=== PATIENT | male | born 1970 | race Caucasian/White ===

== ENCOUNTER 2025-04-25 20:48 | Inpatient (IN) ==
[2025-04-25] MEDS: IPRATROPIUM/ALBUTEROL 3 ML AMPUL.NEB NEB ONE (21:44)
[2025-04-25] MEDS: 0.9 % SODIUM CHLORIDE 500 ML IV ONE (21:51)
[2025-04-25] MEDS: KETOROLAC 30 MG/ML VIAL IV ONE (21:51)
[2025-04-25] MEDS: ACETAMINOPHEN 1,000 MG/100 ML BAG IV ONE (21:51)
[2025-04-25] MEDS: methylPREDNISolone SOD SUCC 125 MG/2 ML VIAL IV ONE (21:51)
[2025-04-25 22:12] LABS: Basophils # (Auto) 0.03 K/mcL (0.00-0.30); Basophils % (Auto) 0.3 % (0.0-2.0); Eosinophils # (Auto) 0.06 K/mcL (0.00-0.70); Eosinophils % (Auto) 0.6 % (0.0-7.0); Hematocrit 41.7 % (40.1-51.0); Hemoglobin 13.5 g/dL (13.7-17.5); Lymphocytes # (Auto) 0.95 K/mcL (1.50-4.80); Lymphocytes % (Auto) 9.6 % (15.5-49.0); Mean Corpuscular HGB Conc 32.4 g/dL (31.0-36.0); Mean Platelet Volume 12.4 fL (8.8-12.5); Monocytes # (Auto) 1.12 K/mcL (0.10-0.90); Monocytes % (Auto) 11.3 % (1.0-12.0); Neutrophils % (Auto) 77.9 % (38.0-78.0); Platelet Count 224 K/mcL (140-440); RBC 4.85 M/mcL (4.63-6.08); Red Cell Distribution Width 14.2 % (11.5-14.5); WBC 9.9 K/mcL (4.5-11.0)
[2025-04-25] MEDS: cefTRIAXone 2 GM in DEXTROSE 5% IN WATER 50 ML IV ONE (22:18)
[2025-04-25 22:23] LABS: Prothrombin Time 13.9 sec (11.9-14.5)
[2025-04-25 22:26] LABS: proBNP 82.6 pg/mL (<125.0)
[2025-04-25 22:29] LABS: ALT/SGPT 20 U/L (<40); AST/SGOT 21 U/L (<40); Albumin 4.1 gm/dL (3.2-5.2); Albumin/Globulin Ratio 1.5 (1.0-2.3); Alkaline Phosphatase 48 U/L (39-117); Bilirubin,Total 0.3 mg/dL (0.1-1.0); Blood Urea Nitrogen 12 mg/dL (6-20); C-Reactive Protein 1.93 mg/dL (0.03-0.80); Calcium 9.4 mg/dL (8.6-10.4); Carbon Dioxide 24 mmol/L (22-30); Chloride 98 mmol/L (96-108); Globulin 2.8 gm/dL (2.2-3.7); Glomerular Filtration Rate 95; Glucose 132 mg/dL (70-105); Potassium 3.9 mmol/L (3.3-5.1); Sodium 135 mmol/L (133-145)
[2025-04-25] MEDS: AZITHROMYCIN 500 MG in DEXTROSE 5% IN WATER 250 ML IV ONE (22:51)
[2025-04-25 22:56] LABS: Erythrocyte Sedimentation Rate 11 mm/hr (0-20)
[2025-04-26 01:01] LABS: Appearance,Urine Clear (Clear); Bilirubin,Urine Negative (Negative); Color,Urine Yellow; Glucose,Urine (UA) >=1000 mg/dL (Negative); Ketones,Urine 15 mg/dL (Negative); Leukocyte Esterase,Urine Negative /uL (Negative); Mucus,Urine Few /hpf; Nitrate,Urine Negative (Negative); Protein,Urine Negative (Negative); Specific Gravity,Urine <= 1.005 (1.000-1.035); Urine Blood Negative ery/mcL (Negative); Urine RBC 0 /hpf (0-3); Urine Squamous Epithelial Cell 0 /hpf (0-4); Urine WBC 0 /hpf (0-4); Urobilinogen,Urine Normal
[2025-04-26] MEDS: IPRATROPIUM/ALBUTEROL 3 ML AMPUL.NEB NEB ONE (01:04)
[2025-04-26] MEDS ORDERED: ONDANSETRON 4 MG/2 ML VIAL IV PRN (01:17)
[2025-04-26] MEDS: DIVALPROEX SODIUM 250 MG TABLET PO ONE (01:53)
[2025-04-26] MEDS: IPRATROPIUM/ALBUTEROL 3 ML AMPUL.NEB NEB SCH (02:55)
[2025-04-26] MEDS: LACTATED RINGERS 1,000 ML IV SCH (03:28)
[2025-04-26] MEDS: 0.9 % SODIUM CHLORIDE 1,000 ML IV SCH (03:28)
[2025-04-26] MEDS: traZODone HCL 100 MG TABLET PO ONE (04:55)
[2025-04-26 05:53] LABS: Basophils # (Auto) 0.01 K/mcL (0.00-0.30); Basophils % (Auto) 0.1 % (0.0-2.0); Eosinophils # (Auto) 0 K/mcL (0.00-0.70); Eosinophils % (Auto) 0 % (0.0-7.0); Hematocrit 41.2 % (40.1-51.0); Hemoglobin 13.2 g/dL (13.7-17.5); Lymphocytes # (Auto) 0.58 K/mcL (1.50-4.80); Mean Cell Volume 86.4 fL (80.0-100.0); Monocytes # (Auto) 0.35 K/mcL (0.10-0.90); Monocytes % (Auto) 3.6 % (1.0-12.0); Neutrophils % (Auto) 89.9 % (38.0-78.0); Platelet Count 207 K/mcL (140-440); RBC 4.77 M/mcL (4.63-6.08); Red Cell Distribution Width 14.1 % (11.5-14.5); WBC 9.7 K/mcL (4.5-11.0)
[2025-04-26 06:09] LABS: ALT/SGPT 16 U/L (<40); AST/SGOT 17 U/L (<40); Albumin/Globulin Ratio 1.4 (1.0-2.3); Alkaline Phosphatase 47 U/L (39-117); Bilirubin,Direct < 0.2 mg/dL (0-0.3); Bilirubin,Total < 0.2 mg/dL (0.1-1.0); Blood Urea Nitrogen 11 mg/dL (6-20); Carbon Dioxide 21 mmol/L (22-30); Chloride 103 mmol/L (96-108); Globulin 2.8 gm/dL (2.2-3.7); Glomerular Filtration Rate 99; Glucose 194 mg/dL (70-105); Lactate Dehydrogenase 271 U/L (135-225); Phosphorous 3.8 mg/dL (2.5-4.5); Potassium 3.7 mmol/L (3.3-5.1); Sodium 140 mmol/L (133-145); Triglycerides 52 mg/dL (<150); Uric Acid 4.6 mg/dL (2.5-8.0)
[2025-04-26] MEDS ORDERED: cefTRIAXone 1 GM VIAL IV SCH ×2 (07:00)
[2025-04-26] MEDS ORDERED: risperiDONE 0.25 MG TABLET PO PRN (08:01)
[2025-04-26] MEDS: Tiotropium Bromide [Spiriva Respimat] 2.5 mcg/act INH SCH (08:34)
[2025-04-26] MEDS: Budesonide-Formoterol [Symbicort] 160-4.5 mcg/act INH SCH (08:34)
[2025-04-26] MEDS: ASPIRIN 81 MG TAB.CHEW PO SCH (08:36)
[2025-04-26] MEDS: methylPREDNISolone SOD SUCC 125 MG/2 ML VIAL IV SCH (08:36)
[2025-04-26] MEDS: risperiDONE 1 MG TABLET PO SCH (08:37)
[2025-04-26] MEDS: cefTRIAXone 2 GM in DEXTROSE 5% IN WATER 50 ML IV SCH (08:37)
[2025-04-26] MEDS: DOXYCYCLINE 100 MG in DEXTROSE 5% IN WATER 100 ML IV SCH (08:37)
[2025-04-26] MEDS: GABAPENTIN 300 MG CAPSULE PO SCH (08:37)
[2025-04-26] MEDS: TAMSULOSIN 0.4 MG CAPSULE PO SCH (08:37)
[2025-04-26] MEDS: DIVALPROEX SODIUM 250 MG TABLET PO SCH (08:37)
[2025-04-26] MEDS ORDERED: DEXTROSE 50% 50 ML VIAL IV PRN (08:41)
[2025-04-26] MEDS ORDERED: DEXTROSE 31 GM ORAL.SUSP PO PRN (08:41)
[2025-04-26] MEDS: ENOXAPARIN 40 MG/0.4 ML SYRINGE SQ SCH (08:54)
[2025-04-26] MEDS ORDERED: methylPREDNISolone SOD SUCC 125 MG/2 ML VIAL IV SCH (09:00)
[2025-04-26] MEDS: INSULIN LISPRO 1 UNIT/0.01 ML UNIT SQ SCH (11:24)
[2025-04-26] MEDS: HALOPERIDOL 5 MG TABLET PO PRN (11:45)
[2025-04-26] MEDS: BENZTROPINE 1 MG TABLET PO SCH (16:26)
[2025-04-26] MEDS: ATORVASTATIN 40 MG TABLET PO SCH (20:37)
[2025-04-26] MEDS: MELATONIN 3 MG TABLET PO SCH (20:37)
[2025-04-26] MEDS: traZODone HCL 100 MG TABLET PO SCH (20:37)
[2025-04-26] MEDS: OMEPRAZOLE 20 MG CAPSULE PO SCH (20:37)
[2025-04-26] MEDS ORDERED: DIVALPROEX SODIUM 250 MG TABLET PO SCH (21:00)
[2025-04-27 06:09] LABS: ALT/SGPT 15 U/L (<40); AST/SGOT 13 U/L (<40); Albumin 3.5 gm/dL (3.2-5.2); Albumin/Globulin Ratio 1.5 (1.0-2.3); Alkaline Phosphatase 38 U/L (39-117); Bilirubin,Direct < 0.2 mg/dL (0-0.3); Bilirubin,Total < 0.2 mg/dL (0.1-1.0); Blood Urea Nitrogen 15 mg/dL (6-20); Calcium 8.6 mg/dL (8.6-10.4); Carbon Dioxide 25 mmol/L (22-30); Chloride 102 mmol/L (96-108); Globulin 2.4 gm/dL (2.2-3.7); Glomerular Filtration Rate 99; Glucose 149 mg/dL (70-105); Lactate Dehydrogenase 162 U/L (135-225); Potassium 4.2 mmol/L (3.3-5.1); Sodium 138 mmol/L (133-145); Triglycerides 84 mg/dL (<150); Uric Acid 4.4 mg/dL (2.5-8.0)
[2025-04-27] MEDS ORDERED: methylPREDNISolone SOD SUCC 125 MG/2 ML VIAL IV SCH (09:00)
[2025-04-27] MEDS ORDERED: DIAZEPAM 5 MG TABLET PO PRN (09:40)
[2025-04-27] MEDS: NICOTINE 14 MG PATCH TOPICAL SCH (09:56)
[2025-04-27] MEDS: guaiFENesin/CODEINE 10 ML UDC PO ONE (09:56)
[2025-04-27] MEDS: IPRATROPIUM/ALBUTEROL 3 ML AMPUL.NEB NEB PRN (23:50)
[2025-04-28 06:08] LABS: ALT/SGPT 14 U/L (<40); AST/SGOT 14 U/L (<40); Albumin 3.6 gm/dL (3.2-5.2); Albumin/Globulin Ratio 1.4 (1.0-2.3); Alkaline Phosphatase 36 U/L (39-117); Bilirubin,Direct < 0.2 mg/dL (0-0.3); Bilirubin,Total < 0.2 mg/dL (0.1-1.0); Blood Urea Nitrogen 14 mg/dL (6-20); Calcium 8.9 mg/dL (8.6-10.4); Carbon Dioxide 30 mmol/L (22-30); Chloride 101 mmol/L (96-108); Globulin 2.5 gm/dL (2.2-3.7); Glomerular Filtration Rate 99; Glucose 149 mg/dL (70-105); Lactate Dehydrogenase 167 U/L (135-225); Phosphorous 4.5 mg/dL (2.5-4.5); Potassium 4.1 mmol/L (3.3-5.1); Sodium 140 mmol/L (133-145); Triglycerides 80 mg/dL (<150); Uric Acid 4.5 mg/dL (2.5-8.0)
[2025-04-28] MEDS: FUROSEMIDE 100 MG/10 ML VIAL IV ONE (09:31)
[2025-04-28] MEDS: methylPREDNISolone SOD SUCC 40 MG/ML VIAL IV SCH (13:58)
[2025-04-28] MEDS: guaiFENesin/CODEINE 10 ML UDC PO PRN (13:59)
[2025-04-28] MEDS: ACETAMINOPHEN 325 MG TABLET PO PRN (17:38)
[2025-04-28] MEDS: POLYETHYLENE GLYCOL 3350 17 GM PACKET PO PRN (20:50)
[2025-04-29 06:42] LABS: ALT/SGPT 19 U/L (<40); AST/SGOT 17 U/L (<40); Albumin/Globulin Ratio 1.4 (1.0-2.3); Alkaline Phosphatase 42 U/L (39-117); Bilirubin,Direct < 0.2 mg/dL (0-0.3); Bilirubin,Total 0.2 mg/dL (0.1-1.0); Blood Urea Nitrogen 18 mg/dL (6-20); Calcium 9.2 mg/dL (8.6-10.4); Carbon Dioxide 28 mmol/L (22-30); Chloride 97 mmol/L (96-108); Globulin 2.9 gm/dL (2.2-3.7); Glomerular Filtration Rate 105; Glucose 248 mg/dL (70-105); Lactate Dehydrogenase 202 U/L (135-225); Potassium 4.2 mmol/L (3.3-5.1); Sodium 139 mmol/L (133-145); Triglycerides 106 mg/dL (<150); Uric Acid 4.9 mg/dL (2.5-8.0)
[2025-04-29] MEDS: FUROSEMIDE 100 MG/10 ML VIAL IV SCH (08:33)
[2025-04-29] MEDS: INSULIN GLARGINE, HUMAN 1 UNIT/0.01 ML SQ SCH (08:33)
[2025-04-29] MEDS: BENZONATATE 100 MG CAPSULE PO SCH (10:13)
[2025-04-29] MEDS: INSULIN LISPRO 1 UNIT/0.01 ML UNIT SQ SCH (11:48)
[2025-04-29] MEDS: BENZONATATE 100 MG CAPSULE PO PRN (20:27)
[2025-04-30 06:15] LABS: ALT/SGPT 28 U/L (<40); AST/SGOT 24 U/L (<40); Albumin 3.6 gm/dL (3.2-5.2); Albumin/Globulin Ratio 1.3 (1.0-2.3); Alkaline Phosphatase 45 U/L (39-117); Bilirubin,Direct < 0.2 mg/dL (0-0.3); Bilirubin,Total < 0.2 mg/dL (0.1-1.0); Blood Urea Nitrogen 21 mg/dL (6-20); Calcium 9.1 mg/dL (8.6-10.4); Carbon Dioxide 26 mmol/L (22-30); Chloride 97 mmol/L (96-108); Globulin 2.7 gm/dL (2.2-3.7); Glomerular Filtration Rate 105; Glucose 341 mg/dL (70-105); Lactate Dehydrogenase 222 U/L (135-225); Phosphorous 4.2 mg/dL (2.5-4.5); Potassium 4.8 mmol/L (3.3-5.1); Sodium 137 mmol/L (133-145); Triglycerides 151 mg/dL (<150); Uric Acid 4.3 mg/dL (2.5-8.0)
[2025-04-30 06:15] LABS: C-Reactive Protein 1.04 mg/dL (0.03-0.80)
[2025-04-30] MEDS: INSULIN GLARGINE, HUMAN 1 UNIT/0.01 ML SQ SCH (08:39)
[2025-04-30 08:49] LABS: Hemoglobin A1C 7.1 % Hgb (4.0-6.0)
[2025-04-30] MEDS: FUROSEMIDE 40 MG/4 ML VIAL IV ONE (10:33)
[2025-04-30] MEDS ORDERED: DEXTROSE 31 GM ORAL.SUSP PO PRN (11:41)
[2025-04-30] MEDS ORDERED: DEXTROSE 50% 50 ML VIAL IV PRN (11:41)
[2025-04-30] MEDS: INSULIN LISPRO 1 UNIT/0.01 ML UNIT SQ SCH (13:46)
[2025-04-30] MEDS: methylPREDNISolone SOD SUCC 40 MG/ML VIAL IV SCH (20:47)
[2025-05-01 07:00] LABS: ALT/SGPT 24 U/L (<40); AST/SGOT 16 U/L (<40); Albumin 3.6 gm/dL (3.2-5.2); Albumin/Globulin Ratio 1.5 (1.0-2.3); Alkaline Phosphatase 42 U/L (39-117); Bilirubin,Direct < 0.2 mg/dL (0-0.3); Bilirubin,Total < 0.2 mg/dL (0.1-1.0); Blood Urea Nitrogen 25 mg/dL (6-20); Calcium 9.1 mg/dL (8.6-10.4); Carbon Dioxide 30 mmol/L (22-30); Chloride 98 mmol/L (96-108); Globulin 2.4 gm/dL (2.2-3.7); Glomerular Filtration Rate 105; Glucose 266 mg/dL (70-105); Lactate Dehydrogenase 196 U/L (135-225); Phosphorous 4.5 mg/dL (2.5-4.5); Sodium 139 mmol/L (133-145); Triglycerides 118 mg/dL (<150); Uric Acid 4.9 mg/dL (2.5-8.0)
[2025-05-01] MEDS: predniSONE 20 MG TABLET PO SCH (08:08)
[2025-05-02 07:09] LABS: Blood Urea Nitrogen 24 mg/dL (6-20); Calcium 9.6 mg/dL (8.6-10.4); Carbon Dioxide 31 mmol/L (22-30); Chloride 99 mmol/L (96-108); Glomerular Filtration Rate 99; Glucose 238 mg/dL (70-105); Potassium 4.8 mmol/L (3.3-5.1); Sodium 142 mmol/L (133-145)
[2025-05-02 07:50] LABS: Basophils # (Auto) 0.01 K/mcL (0.00-0.30); Basophils % (Auto) 0.1 % (0.0-2.0); Eosinophils # (Auto) 0 K/mcL (0.00-0.70); Eosinophils % (Auto) 0 % (0.0-7.0); Hematocrit 42.2 % (40.1-51.0); Hemoglobin 13.3 g/dL (13.7-17.5); Lymphocytes # (Auto) 2.03 K/mcL (1.50-4.80); Lymphocytes % (Auto) 20.8 % (15.5-49.0); Mean Cell Volume 87.7 fL (80.0-100.0); Mean Corpuscular HGB Conc 31.5 g/dL (31.0-36.0); Mean Platelet Volume 11.3 fL (8.8-12.5); Monocytes # (Auto) 0.86 K/mcL (0.10-0.90); Monocytes % (Auto) 8.8 % (1.0-12.0); Neutrophils % (Auto) 69.9 % (38.0-78.0); Platelet Count 276 K/mcL (140-440); RBC 4.81 M/mcL (4.63-6.08); Red Cell Distribution Width 14.4 % (11.5-14.5); WBC 9.8 K/mcL (4.5-11.0)
[2025-05-03 06:52] LABS: Basophils # (Auto) 0.01 K/mcL (0.00-0.30); Basophils % (Auto) 0.1 % (0.0-2.0); Eosinophils # (Auto) 0.01 K/mcL (0.00-0.70); Eosinophils % (Auto) 0.1 % (0.0-7.0); Hematocrit 43.5 % (40.1-51.0); Lymphocytes # (Auto) 2.24 K/mcL (1.50-4.80); Lymphocytes % (Auto) 23.3 % (15.5-49.0); Mean Cell Volume 85.8 fL (80.0-100.0); Mean Corpuscular HGB Conc 32.2 g/dL (31.0-36.0); Mean Platelet Volume 10.9 fL (8.8-12.5); Monocytes # (Auto) 0.88 K/mcL (0.10-0.90); Monocytes % (Auto) 9.2 % (1.0-12.0); Neutrophils % (Auto) 66.3 % (38.0-78.0); Platelet Count 293 K/mcL (140-440); RBC 5.07 M/mcL (4.63-6.08); Red Cell Distribution Width 14.2 % (11.5-14.5); WBC 9.6 K/mcL (4.5-11.0)
[2025-05-03 07:07] LABS: Blood Urea Nitrogen 25 mg/dL (6-20); Calcium 9.5 mg/dL (8.6-10.4); Carbon Dioxide 27 mmol/L (22-30); Chloride 99 mmol/L (96-108); Glomerular Filtration Rate 105; Glucose 126 mg/dL (70-105); Potassium 3.9 mmol/L (3.3-5.1); Sodium 140 mmol/L (133-145)
[2025-05-03 11:21] VITALS: TEMP 97.7; O2SAT 91
== END 2025-05-03 14:52 | DRG 190 ==
LOC: ED 20:48 → MEDSUR 04-26 03:08 → ICU 04-28 00:49 → MEDSUR 05-02 13:37
PROVIDERS: ADMIT Student in an Organized Health Care Education/Training Program; ATTEND Internal Medicine